=== PATIENT | female | born 1960 | race Caucasian/White ===

== ENCOUNTER 2017-04-13 17:13 | Emergency (ER) | payer OTHER ==
[~2017-04-13] VITALS: Ht 167.6 cm; Wt 100.7 kg
[~2017-04-13 17:13] MED LIST: ALBUTEROL2.5 MG/0.5 IH; AMLODIPINE BESY10 MG PO; AZITHROMYCIN250 MG PO; BENZONATATE100 MG PO; DUONEB 2.5-0.5 M3 ML IH; GUAIATUSSIN AC118 ML PO; HYDROCODON-ACE1 EAC7 PO; K-DUR20 MEQ PO; LASIX40 MG PO; LEVALBUTER1.25 MG/3 IH; LEVOFLOXACIN750 MG PO; LO-DOSE ASPIRIN81 M1 PO; LOPRESSOR25 MG PO; PERCOCET 10/1 TABLET PO; PERCOCET 5/31 TABLET PO; PREDNISONE10 MG PO; PREDNISONE50 MG PO; PROAIR HFA8.5 GM IH; SINGULAIR10 MG PO; SPIRIVA1 INHALATI IH; SYMBICORT60 INHALA1 IH; SYMBICORT60 INHALAT IH; VENTOLIN HFA18 GM IH; XANAX0.25 MG PO
[2017-04-13 18:24] LABS: MCH 30.6 PG (29.0-34.0); MCHC 32.6 G/DL (30.0-36.0); MCV 93.9 FL (83-99); MEAN PLAT.VOLUME 10.2 uM^3 (9.5-12.4); PLATELET COUNT 278 K/uL (156-360); RBC DIS.WIDTH-SD 44.5 % (39-53); WHITE BLOOD COUNT 11.5 K/uL (4.1-10.2)
[2017-04-13 18:32] LABS: PROTHROMBIN TIME 11.5 SEC (10.2-12.9)
[2017-04-13 18:33] LABS: CHLORIDE 103 mEq/L (99-109); POTASSIUM 4.2 mEq/L (3.7-5.4); SODIUM 139 mEq/L (136-147)
[2017-04-13 18:35] LABS: GLUCOSE 101 mg/dL (70-99); PTT 30.7 SEC (25-37)
[2017-04-13 18:36] LABS: ANION GAP 9 MEQ/L (2-14)
[2017-04-13 18:37] LABS: TOTAL BILIRUBIN 0.4 mg/dL (0.0-1.0)
[2017-04-13 18:38] LABS: ALKALINE PHOSPHATASE 99 IU/L (3-129)
[2017-04-13 18:39] LABS: GFR ESTIMATE (CALCULATED) > 59 mL/min/
[2017-04-13 18:40] LABS: UREA NITROGEN (BUN) 9 mg/dL (9-23)
[2017-04-13 18:49] LABS: ADD MIUA? YES; BILIRUBIN NEGATIVE; BLOOD NEGATIVE; COLOR YELLOW ((YELLOW)); GLUCOSE (STRIP) NEGATIVE; KETONES NEGATIVE; LEUKOCYTES TRACE; NITRITE NEGATIVE; PROTEIN (STRIP) NEGATIVE; SPECIFIC GRAVITY 1.009 (1.000-1.030); UROBILINOGEN 0.2 MG/DL (0.2-1.0)
[2017-04-13 18:52] LABS: BACTERIA 2+ /HPF; EPITHELIAL CELLS 1+ /HPF; MUCUS TRACE /LPF; RED BLOOD CELLS 0-5 /HPF (0-5); UCUL ADDED? YES
[2017-04-13 22:48] VITALS: BP 133/96
== END 2017-04-13 22:48 | disposition home or self-care (01) ==
LOC: EME 17:13
PROVIDERS: Emergency Medicine
DX: L73.1 Pseudofolliculitis barbae (principal); R10.31 Right lower quadrant pain; M79.89 Other specified soft tissue disorders; Z98.890 Other specified postprocedural states; Z95.1 Presence of aortocoronary bypass graft; Z95.5 Presence of coronary angioplasty implant and graft; Z91.041 Radiographic dye allergy status; J44.9 Chronic obstructive pulmonary disease, unspecified; Z79.82 Long term (current) use of aspirin; Z99.81 Dependence on supplemental oxygen; Z87.891 Personal history of nicotine dependence
CPT/HCPCS: 74176; 80053; 81003; 85027; 85610; 85730; 87086; 99281; 99284; J2270; J7030